=== PATIENT | male | born 1995 | race Caucasian/White ===

== ENCOUNTER 2022-04-02 21:50 | Emergency (ER) | payer OTHER, SELFPAY ==
[2022-04-02 21:56] VITALS: BP 141/78; PULSE 69; RESP 20; TEMP 36.4; O2SAT 98; BMI 29.9
--- NOTE | 2022-04-03 01:42 | ED_ITS ---
HPI - Male Genitourinary General Chief complaint: Urogenital-Male Stated complaint: fell and hit groin area Time Seen by Provider: 04/03/22 00:39 Source: patient Mode of arrival: Ambulatory History of Present Illness HPI Narrative: 26-year-old male nonsmoker with noncontributory medical history presents for evaluation of a minimally painful lump in his perineum that he noticed after a fall that was about 10 days ago. He was at work walking on some ropes structure when he slipped and landed with his body weight on the large cables rope between his legs. He initially had some pain in his testicles but has been symptom free for the duration. He denies difficulty urinating or having bowel movements, he states that he had a little bit of bruising in his scrotum initially but that has since resolved and this is not where his discomfort is. He denies any change with bowel movements. He states that he has been able to work and is essentially symptom-free but was performing self examination felt a small lump right of the midline in his perineum and started getting his mind wrapped around possible diagnoses and after talking with some friends they told him it may be a hernia so he came for evaluation. Related Data Home Medications Medication Instructions Recorded Confirmed acetaminophen 325 mg rectal 325 mg CA Q4HP PRN ##0 06/15/17 suppository (Acephen) Previous Rx's Medication Instructions Recorded amoxicillin 500 mg capsule 500 mg PO Q8H #30 caps 06/15/17 Allergies Allergy/AdvReac Type Severity Reaction Status Date / Time No Known Allergies Allergy Uncoded 10/06/17 12:49 Review of Systems Review of Systems Narrative: GENERAL: Denies chills, fatigue, malaise, fever, sweats. HEENT: Denies sinus pain, ear pain, sore throat, difficulty swallowing, dizziness. RESPIRATORY: Denies dyspnea, cough, wheezing, hemoptysis, sputum. CARDIOVASCULAR: Denies chest pain, palpitations, orthopnea, edema, GASTROINTESTINAL: Denies nausea, vomiting, abdominal pain, diarrhea, constipation, melena. : See HPI MUSCULOSKELETAL: denies weakness, joint pain, or bony pain SKIN: Denies rash, skin lesions, or other NEUROLOGIC: Denies weakness, headache, numbness, change in speech, confusion, seizures, incoordination. PSYCHIATRIC: No concerning psychosocial issues. 12 point review of systems is negative except for those stated above Patient History Social History Smoking Status: Never smoker Smoking Status: Never smoker alcohol intake frequency: a few times a week Substance Use Type: does not use Exam Narrative Exam Narrative: GEN: 26-year-old male, in no obvious distress EYES: Pupils are equal, round, and reactive to light and accommodation. Extraoccular muscles are intact bilaterally. There is no subconjunctival hemorrhage or exudate. CHEST: Lungs are clear to auscultation bilaterally and free of wheezes, rales, or rhonchi. Heart rate is regular rhythm, there are no murmurs, clicks, rubs, or gallops. There is no chest wall tenderness. ABD: Abdomen is soft and nontender. There is no guarding or rebound. Bowel sounds are normal in all 4 quadrants. There is no mass or organomegaly. : No scrotal swelling, ecchymosis, or obvious external manifestation of injury. There is a very small, perhaps pea-sized painless palpable ?lump? in the perineum right of midline EXT: Full painless ROM of all extremities with no loss of sensation or strength. SKIN: Warm, pink, and dry. No erythema or rash Initial Vital Signs Initial Vital Signs: Vital Signs Temperature 97.6 F 04/02/22 21:56 Pulse Rate 69 04/02/22 21:56 Respiratory Rate 20 04/02/22 21:56 Blood Pressure 141/78 H 04/02/22 21:56 Pulse Oximetry 98 04/02/22 21:56 Oxygen Delivery Method 04/02/22 21:56 Course Vital Signs Vital signs: Vital Signs - 8 hr 04/02/22 21:56 Temperature 97.6 F Pulse Rate 69 Respiratory Rate 20 Blood Pressure 141/78 H Pulse Oximetry 98 Oxygen Delivery Method Room Air Discharge Plan Departure Patient Disposition: Home Clinical Impression: Injury of perineum Activity Restrictions/Additional Instructions: *You have been diagnosed with [mild injury to perineum, no obvious suggestion of hematoma, infection or testicular injury that would require a specific or immediate intervention] *What to do: *Please continue to take your regular medications as directed. *Please follow up with your primary care provider in 2-3 days, call for an appointment. Let them know you were seen in the Emergency Department and that we ask that you be seen in follow up. We will electronically transmit a record of today's note if your PCP is in our system *If you do not have a primary care provider please contact the [facility] Resource line at [phone]. They will ask some questions about your medical history and help get you set up with a doctor in the community. *Return to Emergency Department if you should have any new, worsening or concerning symptoms, such as [fever greater than 101 F, shaking chills, worsening pain, persistent vomiting or other bothersome symptoms] Prescriptions: No Action acetaminophen [Acephen] 325 MG suppository 325 mg CA Q4HP PRNQty: 0 amoxicillin 500 MG capsule 500 mg PO Q8H Qty: 30 0RF Visit Report Forms: Patient Portal/API
== END 2022-04-03 01:55 | disposition home or self-care (01) ==
PROVIDERS: Emergency Provider Emergency Medicine
DX: S39.94XA Unspecified injury of external genitals, initial encounter (principal); W01.198A Fall on same level from slipping, tripping and stumbling with subsequent striking against other object, initial encounter; Y99.0 Civilian activity done for income or pay
CPT/HCPCS: 99281

== ENCOUNTER 2024-06-05 10:07 | Emergency (ER) | payer OTHER, SELFPAY ==
[2024-06-05 10:14] VITALS: BP 143/88; PULSE 66; RESP 16; TEMP 36.6; O2SAT 98; BMI 31.5
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
[2024-06-05] MEDS: FLUORESCEIN 1 MG STRIP EYE-BOTH (10:20)
[2024-06-05] MEDS: PROPARACAINE 0.5% OPHTH SOL 1 DROPS EYE-RIGHT (10:21)
[2024-06-05 10:45] VITALS: BP 139/80; PULSE 62; RESP 18; O2SAT 97
== END 2024-06-05 10:46 | disposition home or self-care (01) ==
PROVIDERS: Emergency Provider Emergency Medicine
DX: H10.9 Unspecified conjunctivitis (principal)
CPT/HCPCS: 99282

== ENCOUNTER 2024-07-08 14:26 | Emergency (ER) | payer BC, SELFPAY ==
[2024-07-08 14:46] VITALS: BP 119/63; PULSE 64; RESP 18; TEMP 36.4; O2SAT 99; BMI 31.5
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
[2024-07-08 15:47] VITALS: BP 122/64; PULSE 70; RESP 16; TEMP 36.4; O2SAT 100
== END 2024-07-08 15:48 | disposition home or self-care (01) ==
PROVIDERS: Emergency Provider Registered Nurse
DX: S13.4XXA Sprain of ligaments of cervical spine, initial encounter (principal); S00.81XA Abrasion of other part of head, initial encounter; S20.319A Abrasion of unspecified front wall of thorax, initial encounter; V43.52XA Car driver injured in collision with other type car in traffic accident, initial encounter; W22.11XA Striking against or struck by driver side automobile airbag, initial encounter
CPT/HCPCS: 99281; 99283